=== PATIENT | female | born 1985 | race Caucasian/White ===

== ENCOUNTER → 2018-01-06 18:50 | Observation (INO) ==
--- NOTE | 2018-01-06 16:59 | OB/GYN Progress Note ---
Date of Encounter: 01/06/18 Time of Encounter: 16:52 - Assessment and Plan (1) Dichorionic diamniotic twin gestation Current Visit: Yes Status: Acute Qualifiers: Trimester: third trimester Qualified Code(s): O30.043 - Twin , dichorionic/diamniotic, third trimester (2) 29 weeks gestation of Current Visit: Yes Status: Acute FHT reassuring x2 per Dr. Levi who has reviewed tracing. (3) Nausea Current Visit: Yes Status: Acute Sx improved with zofran. She is tolerating regular diet. Discharge home with precautions. POC per Dr. Levi Subjective - Subjective Interval history: 32 year-old female G1 presenting at 29w1d with di/di twin complaining of nausea, diarrhea, and cramping for last 2 days. She reports feeling generally ill. No leaking or bleeding. Good FM. No urinary sx. She states she is out of her zofran at home. She states only one BM this am. No vomiting. She is tolerating a regular diet and fluids. Antepartum ROS: movement normal, no loss of fluid, no vaginal bleeding, no contractions Objective - Vital Signs Vital Signs: Intake and Output 01/06/18 01/06/18 01/06/18 07:59 15:59 23:59 Other: Weight 189 kg Patient Weight 01/06/18 23:59 Weight 189 kg - Exam FHR: category 1 Auscultation: bilateral: normal Abdomen: Present: soft, gravid. Absent: tenderness Uterus: Absent: tenderness
[2018-01-06 17:51] LABS: Bilirubin,Urine Negative (Negative); Blood,Urine Negative (Negative); Clarity,Urine Cloudy (Clear); Color,Urine Yellow (Yellow); Glucose,Urine (UA) Normal (Normal); Ketones,Urine Negative (Negative); Leukocyte Esterase,Urine Small (Negative); Nitrite,Urine Negative (Negative); Protein,Urine Negative (Neg-Trace); Specific Gravity,Urine > 1.030 (1.010-1.025); Urobilinogen,Urine Normal (Normal)
[2018-01-06 17:56] LABS: Bacteria,Urine None Seen per hpf (None-Few); Hyaline Casts,Urine None Seen per lpf (None-Few); RBC,Urine 0-3 per hpf (0-3); Squamous Epithelial Cell,Urine Many per lpf (None-Few)
[2018-01-06 18:10] LABS: Uric Acid Crystals,Urine Present
[~2018-01-06 18:50] MED LIST: Ondansetron ODT 4 MG TAB.RAPDIS SL ONE
== END | disposition home or self-care (01) ==
LOC: 1NENULAB
PROVIDERS: ADMIT Obstetrics & Gynecology; ATTEND Obstetrics & Gynecology

== ENCOUNTER → 2018-01-11 18:37 | Observation (INO) ==
--- NOTE | 2018-01-11 14:34 | OB/GYN Progress Note ---
Date of Encounter: 01/11/18 Time of Encounter: 14:30 - Assessment and Plan (1) Acute cystitis during in third trimester Current Visit: Yes Status: Acute UA with moderate leukocytes and some WBC's. Keflex rx given. Discharge home with precautions. Will follow-up culture. (2) False labor Current Visit: Yes Status: Acute SVE closed/thick/high x2 exams. PT reports pain has resolved. SSE negative pool, negative fern. (3) 29 weeks gestation of Current Visit: No Status: Acute (4) Dichorionic diamniotic twin gestation Current Visit: No Status: Acute FHT reassuring for GA x2. Tracing reviewed by Dr. Cheung. POC discussed with Dr. Cheung. Qualifiers: Trimester: third trimester Qualified Code(s): O30.043 - Twin , dichorionic/diamniotic, third trimester Subjective - Subjective Principal diagnosis: leaking fluid Interval history: 32 year-old female currently 29w6d with di/di twins presenting with c/o a small gush of clear fluid at approx 1320 this afternoon. She was in the restroom when she felt some extra fluid come out after she urinated. She denies contractions or bleeding. Good FM. She does report some lower back pain for the last 2 days as well as increased vaginal discharge. No other complaints. Antepartum ROS: movement normal, contractions (lower back pain, unsure if contractions), no loss of fluid, no vaginal bleeding Objective - Vital Signs Vital Signs: Intake and Output 01/10/18 01/11/18 01/11/18 23:59 07:59 15:59 Other: Weight 194.7 kg Patient Weight 01/11/18 23:59 Weight 194.7 kg - Exam FHR: category 1 FHR comments: FHT reassuring for GA x2 Auscultation: bilateral: normal Abdomen: Present: soft, gravid. Absent: tenderness Uterus: Absent: tenderness Cervical dilation: 0 Cervix effacement: thick station: high Comments: SSE negative for pooling, negative fern. Vaginosis panel negative.
[2018-01-11 14:45] LABS: Bilirubin,Urine Negative (Negative); Blood,Urine Negative (Negative); Clarity,Urine Cloudy (Clear); Color,Urine Yellow (Yellow); Glucose,Urine (UA) Normal (Normal); Ketones,Urine Trace mg/dL (Negative); Leukocyte Esterase,Urine Large (Negative); Nitrite,Urine Negative (Negative); Protein,Urine Trace mg/dL (Neg-Trace); Specific Gravity,Urine 1.019 (1.010-1.025); Urobilinogen,Urine Normal (Normal)
[2018-01-11 14:50] LABS: Bacteria,Urine Many per hpf (None-Few); Hyaline Casts,Urine Moderate per lpf (None-Few); RBC,Urine 0-3 per hpf (0-3); Squamous Epithelial Cell,Urine Many per lpf (None-Few); WBC,Urine TNTC per hpf (0-3)
[2018-01-11 15:15] LABS: Amphetamine Screen,Urine Negative ng/mL (Cutoff=1000); Barbiturate Screen,Urine Negative ng/mL (Cutoff=200); Benzodiazepines Screen,Urine Negative ng/mL (Cutoff=200); Cannabinoid Screen,Urine Negative ng/mL (Cutoff = 50); Cocaine Screen,Urine Negative ng/mL (Cutoff= 300); Opiate Screen,Urine Negative ng/mL (Cutoff=300); Phencyclidine Screen,Urine Negative ng/mL (Cutoff=25)
[2018-01-11 15:28] LABS: Candida DNA Not Detected (Not Detect); Gardnerella DNA Not Detected (Not Detect); Trichomonas DNA Not Detected (Not Detect)
== END | disposition home or self-care (01) ==
LOC: 1NENULAB
PROVIDERS: ADMIT Student in an Organized Health Care Education/Training Program; ATTEND Student in an Organized Health Care Education/Training Program

== ENCOUNTER 2018-03-08 19:05 | Inpatient (IN) ==
[~2018-03-08 19:05] MED LIST changes: +Methylergonovine 0.2 MG/ML AMPUL IM ONE; -Ondansetron ODT 4 MG TAB.RAPDIS SL ONE; +Ringers Solution, Lactated 1,000 ML IVC ONE; +miSOPROStol 100 MCG TABLET PO ONE
[2018-03-08] MEDS ORDERED: CeFAZolin Premix DUPLEX 2,000 MG/50 ML BAG IVPB ONE (19:14)
[2018-03-08] MEDS ORDERED: Metoclopramide 10 MG/2 ML VIAL IVP ONE (19:14)
[2018-03-08] MEDS ORDERED: Oxytocin 20 units/ LR 1000 mL 20 UNIT/1,000 ML BAG IVC ONE (19:14)
[2018-03-08] MEDS ORDERED: Famotidine 20 MG/2 ML VIAL IVP ONE (19:14)
[2018-03-08] MEDS ORDERED: Ringers Solution, Lactated 1,000 ML ONE ×4 (19:15→21:01)
[2018-03-08] MEDS ORDERED: Bupivacaine/PF 0.75% in Dex 2 ML AMPUL INFILT ONE (19:24)
[2018-03-08] MEDS ORDERED: *HR* Morphine Sulfate/PF 10 MG/10 ML AMPUL ONE (19:27)
[2018-03-08] MEDS ORDERED: *HR* Oxytocin 10 UNIT/ML VIAL IM ONE ×3 (19:27→21:01)
[2018-03-08] MEDS ORDERED: EPHEDrine 50 MG/ML VIAL ONE (19:27)
[2018-03-08] MEDS ORDERED: Lidocaine -MPF 2% 5 ML VIAL ONE ×2 (19:27→20:55)
[2018-03-08] MEDS ORDERED: *HR* FentaNYL (PF) 100 MCG/2 ML VIAL ONE (19:27)
[2018-03-08] MEDS ORDERED: Water for inj. (sterile) 10 ML IV ONE (19:27)
--- NOTE | 2018-03-08 19:30 | OB/GYN History & Physical ---
Date of Encounter: 03/08/18 Time of Encounter: 19:27 Assessment and Plan (1) and not yet delivered in third trimester Current visit: Yes Status: Acute (2) 37 weeks gestation of Current visit: Yes Status: Acute (3) Breech presentation Current visit: Yes Status: Acute Qualifiers: Fetus number: fetus 1 of multiple gestation Qualified Code(s): O32.1XX1 - Maternal care for breech presentation, fetus 1 (4) Spontaneous rupture of membranes Current visit: Yes Status: Acute (5) Active labor at term Current visit: Yes Status: Acute Patient will be prepped for a primary low transverse section (6) Dichorionic diamniotic twin gestation Current visit: No Status: Acute Qualifiers: Trimester: third trimester Qualified Code(s): O30.043 - Twin , dichorionic/diamniotic, third trimester History of Present Illness HPI: Ms. Bishop is a 32 year old female 2 para 1 at 37-6/7 weeks who presented to labor and delivery complaining of ruptured membranes approximately 1330. Patient has a known twin gestation breech breech and is supposed to deliver at [facility]. Baby A has a lesion on his lung and we suspect possible CPAM and she was supposed to deliver in [place] in case they needed immediately transferred to [facility] for surgical intervention. On admission patient was 5 cm grossly ruptured and nicole every 2-3 minutes. Patient was too unstable for transfer section will need to be called at this point the patient has had good care with maternal- medicine and throughout the office with Dr. Carter and has been seen by the neonatology department at [facility]. Patient states that she had been feeling both babies move prior to coming in. Past patient whether she wanted tubal ligation at this point she did not really know whether she wanted it so this will not be performed at this time. Patient's GBS status was negative patient is rubella positive, Rh+, Varicella positive Past Med Surg Social Fam HX - Past Medical History Source: patient, old records reviewed Medical history: GERD, migraine Psychiatric history: anxiety, depression, other (Attention deficit disorder) - Past Surgical History Additional surgical history: sinus surgery, lumpectomy right breast, with an did, facial plastic surgery repair - Social History Smoking Status: Never smoker Smokeless Tobacco Status: No Alcohol use: none Drug use: none Occupational status: employed Current living situation: Home - Independent Activity Level: Independent ambulation Recent Out of Country Travel Within the Last 8 Weeks: No Exposure or Possible Exposure to Illness During Travel: No - Family History Mother Living Status: Still Living Hx Family Cardiac Disorders: No Hx Family Respiratory Disorders: No Hx Family Cancer: No Hx Family GI Disorders: No Hx Family Endocrine Disorder: No Hx Family Neuromuscular Disorders: No Hx Family Neurologic Disorders: No Hx Family HEENT Disorders: No Hx Family Autoimmune Disorders: No - Additional Family History Additional family history: Family history noncontributory Obstetrical History - Pregnancies : 2 Para: 1 Medications and Allergies Aspirin 81 mg PO DAILY 01/06/18 [History] Excedrin Migraine Caplet 1 tab PO 1-2XD PRN 01/06/18 [History] Vitamins 1 tab PO DAILY 01/06/18 [History] Prozac 40 mg PO DAILY 01/06/18 [History] Cephalexin [Keflex] 500 mg PO BID #14 capsule 01/11/18 [Rx] Ondansetron ODT [Zofran ODT] 4 mg SL Q8HR PRN 01/11/18 [History] Allergy/AdvReac Type Severity Reaction Status Date / Time sulfamethoxazole AdvReac Hives Verified 01/11/18 14:05 [From Bactrim] trimethoprim [From Bactrim] AdvReac Hives Verified 01/11/18 14:05 Review of System OB All systems PM: reviewed and no additional remarkable complaints except as stated Exam - Constitutional Constitutional: well developed, well nourished, average body habitus, moderate distress - HEENT HEENT: EOMI, Mucus Membranes Moist - Neck Neck exam: full ROM - Lungs Respiratory exam: CTAB - Cardiovascular Cardiovascular exam: RRR - Abdomen Abdomen: Present: bowel sounds normal, gravid ( heart tones 140s reactive both a and B nicole every 2-3 minutes) Results All other labs normal.
[2018-03-08 19:31] LABS: Basophils % 0.2 %; Eosinophils # 0.1 K/mcL (0.0-0.6); Eosinophils % 0.6 %; Hematocrit 39.1 % (35.3-44.9); Hemoglobin 12.7 g/dL (11.5-15.4); Immature Granulocytes % 1.1 % (0-4); Lymphocytes # 1.5 K/mcL (0.6-4.6); Lymphocytes % 13.8 %; Mean Corpuscular HGB Conc 32.5 g/dL (31.6-35.5); Mean Corpuscular Hemoglobin 26.8 pg (28.0-33.3); Mean Corpuscular Volume 82.7 fL (83.0-100.0); Mean Platelet Volume 9.1 fL (9.4-12.4); Monocytes # 0.8 K/mcL (0.0-1.3); Monocytes % 7.6 %; Neutrophils # 8.5 K/mcL (1.6-8.9); Platelet Count 202 K/mcL (140-400); Red Blood Count 4.73 M/mcL (3.82-4.97); Red Cell Distribution Width 16.7 % (11.5-14.5); Segmented Neutrophils % 76.7 %
[2018-03-08] MEDS ORDERED: Azithromycin 500 MG in D5% in Water 250 ML IVPB ONE ×2 (19:55→22:00)
[2018-03-08] MEDS ORDERED: Ondansetron 4 MG/2 ML VIAL ONE (20:24)
--- NOTE | 2018-03-08 20:31 | Anesthesia Evaluation PreOp ---
Date of Encounter: 03/08/18 Time of Encounter: 19:13 - Past History Planned Operation: primary c section for breech twins Cardiac History: Denies any Significant Hx Pulmonary History: Denies Any Significant HX LOGISTICS ANALYST History: Other (anxiety/depression, migraine headaches.) Other Medical History: Denies Any Significant HX Anesthesia History: No Prior Anesthetic Complications, Past Anesthesia (sinus surgery. No problems with GA. No FHAP. Previous epidural 6 years ago, no pr oblems.) Alcohol Use: none Drug use: none Medications and Allergies Aspirin 81 mg PO DAILY 01/06/18 [History] Excedrin Migraine Caplet 1 tab PO 1-2XD PRN 01/06/18 [History] Vitamins 1 tab PO DAILY 01/06/18 [History] Prozac 40 mg PO DAILY 01/06/18 [History] Cephalexin [Keflex] 500 mg PO BID #14 capsule 01/11/18 [Rx] Ondansetron ODT [Zofran ODT] 4 mg SL Q8HR PRN 01/11/18 [History] Allergy/AdvReac Type Severity Reaction Status Date / Time sulfamethoxazole AdvReac Hives Verified 01/11/18 14:05 [From Bactrim] trimethoprim [From Bactrim] AdvReac Hives Verified 01/11/18 14:05 - Meds/Allergy Pre-op Review Medications Reviewed: Yes Allergies Reviewed: Yes Beta Blockers on Current Med List: No Anesthesia Results - Labs 03/08/18 19:08 Anesthesia Exam VSS and FHTs stable Height: 5'4" Weight: 208# NPO (# of Hours): 6 Pain Scale: 4 Pain Scale Used: Numeric (1 - 10) - HEENT Pupil (Motor): Pupils equal Mallampati: II Teeth: Normal Oral Opening: Greater than 3 - LOGISTICS ANALYST LOC: Oriented LOGISTICS ANALYST Motor: Normal RUE, Normal LUE, Normal RLE, Normal LLE, Normal Face LOGISTICS ANALYST Sensory: Normal: RUE, LUE, RLE, LLE, Face - Cardiac Rhythm: Regular - Pulmonary Breath Sounds: bilateral Clear Respiratory Effort: Symmetrical Anesthesia Assess/Plan ASA Score: 2 Level of consciousness: Cooperative, Oriented, Tranquil Anesthetic Plan: Spinal Monitoring Plan: Standard Monitors Recovery Plan: PACU
--- NOTE | 2018-03-08 21:07 | OB/GYN Procedure Note ---
Section - Date of procedure: 03/08/18 Preop diagnosis: other (Intrauterine at 37 and 6/7 weeks, twin gestation breech, breech, active labor, spontaneous rupture membranes) Post-op diagnosis: same Procedure: primary low transverse Surgeon: Rafi Crawford Quantitated Blood Loss: 2,000 Was there an market research assistant present: No Anesthesiologist: Nora Elliott Deputy Sheriff Civil Division: Aliya Villegas Anesthesia Type: Spinal section complications: uterine atony Disposition: L&D Recovery Room Specimens: Placenta - Infant (s) A Infant Delivery Date: 03/08/18 Infant Delivery Time: 20:13 Presentation: footling breech Route of delivery: other (section) Gender: Female Viability: Viable Pounds: 5 Ounces: 1 Gram Weight: 2.285 kg at 1 minute: 7 at 5 minutes: 7 Shoulder Dystocia: not encountered Placenta: spontaneous Cord: 3 umbilical vessels B Delivery Date: 03/08/18 Delivery Time: 20:13 Presentation: kain breech Route of delivery: other (section) Gender: Female Viability: Viable Pounds: 6 Ounces: 10 Gram Weight: 3.01 kg at 1 minute: 8 at 5 minutes: 9 Shoulder Dystocia: not encountered Placenta: spontaneous Cord: 3 umbilical vessels - Narrative Narrative: Patient is a 32-year-old 2 para 1 at 37 and 6 seconds weeks of present to labor and delivery complaining of leaking of fluid since 1630 and contractions every 2-3 minutes. On admission patient was 5 cm patient is a known twin gestation and both babies were breech breech patient is scheduled for a primary section tomorrow at [facility]. Patient states that she did not feel like she can make it there so she came to hospital she was too unstable to transfer and section was called patient was being delivered at [facility] due to twin A having possible CPAM. Procedure: Patient was taken to the operating room where spinal anesthesia was found be adequate. She was placed in the dorsal supine position with leftward tilt prepped and draped in usual fashion. Timeout was obtained. A Pfannenstiel incision was made with a scalpel and carried down to the underlying tissue until the fascia was identified. Fascia was nicked in midline extended laterally with the Morris scissors. The superior and inferior edges of the fascia grasped and tented up dissected off the rectus muscles. Rectus muscles were in the midline parietal peritoneum was identified tented up and entered sharply. This is extended superiorly and inferiorly with Metzenbaum scissors. Bladder blade was inserted the vesicouterine peritoneum was then identified tented up and entered sharply. This was extended laterally and the bladder flap was created digitally. The lower uterine segment was incised with the scalpel and extended laterally with digital manipulation. And rinsed a bulge to the incision there is a ruptured large amounts of fluid was noted. a was noted to be in footling breech the feet were grasped with a through the incision once we had the infant's hips delivered contraceptive across the chest Was then delivered there was a nuchal cord 1 the cord was clamped and cut was handed off to waiting pediatric team. Twin B immediately was delivering no membranes were ruptured at this time this baby was in a kain breech presentation the had Cervidil and grasp with out through the incision contraceptive across the chest and the infant was delivered cord was clamped and cut Ambrose was then handed off. Cord gases and blood was necessary at this time the placenta was then delivered spontaneously 3 vessel cords and both disks. The uterus was exteriorized cleared of all clots and debris we did have uterine atony with significant amount of blood loss at this time 0.2 mg of Methergine was given IM and Pitocin was running with manipulation of the uterus it finally contracted down we then proceeded to close the incision using an 0 Vicryl in a running locking stitch by 2 layer closure. Uterus was nice and firm and we had good hemostasis uterus was returned to the abdomen the gutters were cleaned of all clots and debris then copiously irrigated with no active bleeding we did apply Luke to the bladder reflection and the fascia was closed using a #1 Statafix in a running stitch and the skin was closed using a 4-0 Vicryl in a subcuticular manner. All needles laps and sponge counts were correct 3 she did receive preoperative antibiotics. Patient was taken to the recovery room in stable condition she will to 2 hours before being taken to the floor. We will get a stat CBC and recovery to see what her hemoglobin is. She will be given IV Zithromax and will be continued on by mouth Zithromax daily for 5 days.
[2018-03-08] MEDS ORDERED: miSOPROStol 100 MCG TABLET RC STA (21:42)
[2018-03-08] MEDS ORDERED: Acetaminophen IV 1,000 MG/100 ML INFUS..BTL IVPB ONE (21:44)
[2018-03-08] MEDS ORDERED: *HR* Promethazine 25 MG/ML VIAL IVP PRN (21:44)
--- NOTE | 2018-03-08 21:46 | Event Note ---
Date of Encounter: 03/08/18 Time of Encounter: 21:44 Called to see patient in recovery room due to continuous vaginal bleeding. Patient had approximately 200 mL of clot sitting on her pad I did a bimanual exam and the patient endometrium was 4 clot these were expressed at this time approximately 300 more cc of clot was removed at this time. Endometrial cavity did contract down 600 g of Cytotec was placed rectally at this time. We did observe bleeding was significantly less with a small trickle noted. We did explore the uterus again and cavity was contracted down. Patient will continue to be observed still waiting on the CBC to come back to discuss she is probably going to need a transfusion.
--- NOTE | 2018-03-08 22:13 | Anesthesia Progress Note ---
Date of Encounter: 03/08/18 Time of Encounter: 10:03 Anesthesia Note - Note Note: 03/08/18 22:11 started second IV, 18 guage in right hand. Flushed with NS, j looped and locked.
--- NOTE | 2018-03-08 22:16 | Anesthesia Evaluation Post Op ---
Date of Encounter: 03/08/18 Time of Encounter: 10:00 - Vital Signs Vital Signs: VSS throughout pacu stay. systolic bp 105 to 110 over 50s and 60s. - Lungs Lungs: Clear Ascult./Percussion - Airway Airway: Non-obstructed - Cardiovascular Regular Rate - Mental Status Mental Status: Alert & Oriented, Answers Appropriately - Pain Pain Scale: 0 Pain Scale used: Numeric (1 - 10) - Nausea Vomiting Nausea Vomiting: Present (intermittant nausea, no vomiting. No additional medications administered. Patient feels better lying flatter.) - Hydration Hydration: NPO Notes: 03/08/18 22:15 @nd IV started, 18G j looped and locked. Postop H/H still pending - Discharge PostOp Status: Transfer Patient to floor
[2018-03-08 22:22] LABS: Basophils % 0.2 %; Eosinophils % 0.2 %; Hematocrit 30.1 % (35.3-44.9); Immature Granulocytes % 0.8 % (0-4); Lymphocytes # 1.8 K/mcL (0.6-4.6); Lymphocytes % 8.3 %; Mean Corpuscular HGB Conc 32.2 g/dL (31.6-35.5); Mean Corpuscular Hemoglobin 27.2 pg (28.0-33.3); Mean Corpuscular Volume 84.6 fL (83.0-100.0); Mean Platelet Volume 9.1 fL (9.4-12.4); Monocytes % 4.8 %; Neutrophils # 18.2 K/mcL (1.6-8.9); Platelet Count 218 K/mcL (140-400); Red Blood Count 3.56 M/mcL (3.82-4.97); Red Cell Distribution Width 16.6 % (11.5-14.5); Segmented Neutrophils % 85.7 %
[2018-03-08 22:25] LABS: Hemoglobin 9.7 g/dL (11.5-15.4)
[2018-03-09] MEDS ORDERED: 0.9 % Sodium Chloride 1,000 ML IVC SCH (01:21)
[2018-03-09] MEDS ORDERED: Metoclopramide 10 MG/2 ML VIAL IVP PRN (01:21)
[2018-03-09] MEDS ORDERED: Ondansetron 4 MG/2 ML VIAL IVP PRN (01:21)
[2018-03-09] MEDS ORDERED: Simethicone 80 MG TAB.CHEW PO PRN (01:21)
[2018-03-09] MEDS ORDERED: Oxytocin 20 units/ LR 1000 mL 20 UNIT/1,000 ML BAG IVC SCH ×2 (01:21)
[2018-03-09] MEDS ORDERED: Sennosides 8.6 MG TABLET PO PRN (01:21)
[2018-03-09 05:03] LABS: Basophils % 0.1 %; Hematocrit 24.5 % (35.3-44.9); Hemoglobin 8.3 g/dL (11.5-15.4); Immature Granulocytes % 1.2 % (0-4); Lymphocytes # 1.4 K/mcL (0.6-4.6); Lymphocytes % 8.7 %; Mean Corpuscular HGB Conc 33.9 g/dL (31.6-35.5); Mean Corpuscular Volume 82.8 fL (83.0-100.0); Monocytes % 6.1 %; Neutrophils # 13.5 K/mcL (1.6-8.9); Platelet Count 180 K/mcL (140-400); Red Blood Count 2.96 M/mcL (3.82-4.97); Red Cell Distribution Width 16.6 % (11.5-14.5); Segmented Neutrophils % 83.9 %
[2018-03-09] MEDS: *HR* OxyCODONE/APAP 5/325 TABLET PO PRN ×3 (08:44→18:40)
[2018-03-09] MEDS: Prenatal Vit/FA 1 EACH TABLET PO SCH (08:44)
[2018-03-09] MEDS: Azithromycin 250 MG TABLET PO SCH (08:45)
[2018-03-09] MEDS ORDERED: NON-FORMULARY MEDICATION 1 EACH EACH (Prenatal Vitamins 1 TAB) PO SCH (09:00)
[2018-03-09] MEDS ORDERED: Ondansetron ODT 4 MG TAB.RAPDIS SL PRN (09:14)
[2018-03-09] MEDS: Ibuprofen 600 MG TABLET PO PRN ×2 (09:39→18:41)
[2018-03-09] MEDS ORDERED: Ringers Solution, Lactated 500 ML IVC ONE (09:51)
--- NOTE | 2018-03-09 09:59 | OB/GYN Progress Note ---
Date of Encounter: 03/09/18 Time of Encounter: 09:57 - Assessment and Plan (1) delivery delivered Current Visit: Yes Status: Acute Continue routine post-op/ care Anticipate discharge tomorrow or (2) Anemia complicating the puerperium Current Visit: Yes Status: Acute VSS Repeat CBC in AM C/O nausea and dizziness; will monitor Subjective - Subjective Principal diagnosis: Primary C/S for Breech twin presentation Interval history: S/P primary section day 1 Pain well controlled Lochia light and without clots VSS C/O nausea and dizziness; will continue to monitor Tolerating regular diet; passing flatus Lim removed this AM; will monitor voids Breast feeding Anticipate discharge home tomorrow or POC per consult with Dr Croft Patient reports: appetite normal, dizzy ambulation (Will continue to monitor - EBL 3000mL; Hgb 8.3 this am), pain well controlled, ambulating normally, nauseated, no voiding normally (lim catheter just removed) : doing well (Baby B in room), in NICU (Baby A in SCN) Objective - Vital Signs Latest vital signs: Vital Signs Temp Pulse Resp BP Pulse Ox 03/09/18 07:20 98.6 F 97 18 103/67 97 03/09/18 06:03 99.2 F 99 19 97/63 97 03/09/18 05:54 98.5 F 112 19 97/59 97 03/09/18 03:20 98.7 F 118 19 92/65 97 03/09/18 02:22 98.3 F 100 16 105/71 100 03/09/18 01:20 98.6 F 118 14 90/59 99 03/09/18 00:30 98.7 F 125 14 99/77 98 03/09/18 00:00 99.6 F 117 15 103/69 98 Intake and Output 03/08/18 03/09/18 03/09/18 23:59 07:59 15:59 Intake Total 360 / 360 Output Total 300 / 300 150 / 150 Balance 60 / 60 -150 / -150 Intake: Oral 360 / 360 Output: Catheter 300 / 300 150 / 150 Other: Weight 94.347 kg 87.8 kg Patient Weight 03/09/18 23:59 Weight 87.8 kg - Exam Lungs: bilateral: normal Chest: Normal S1, Normal S2 Extremities: Present: normal Abdomen: Present: normal appearance, soft. Absent: gravid, tenderness Incision: Present: normal (Dressing C/D/I) Uterus: Present: normal, firm Fundal Height: 0 (@ U) - Labs Labs: Laboratory Results - last 24 hr 03/08/18 03/08/18 03/09/18 19:08 20:58 04:32 WBC 11.1 21.2 H D 16.1 H RBC 4.73 3.56 L 2.96 L Hgb 12.7 9.7 L D 8.3 L Hct 39.1 30.1 L 24.5 L MCV 82.7 L 84.6 82.8 L MCH 26.8 L 27.2 L 28.0 MCHC 32.5 32.2 33.9 RDW 16.7 H 16.6 H 16.6 H Plt Count 202 218 180 MPV 9.1 L 9.1 L 9.0 L Immature Gran % 1.1 0.8 1.2 Seg Neutrophils % 76.7 85.7 83.9 Lymphocytes % 13.8 8.3 8.7 Monocytes % 7.6 4.8 6.1 Eosinophils % 0.6 0.2 0.0 Basophils % 0.2 0.2 0.1 Neutrophils # 8.5 18.2 H 13.5 H Lymphocytes # 1.5 1.8 1.4 Monocytes # 0.8 1.0 1.0 Eosinophils # 0.1 0.0 0.0 Basophils # 0.0 0.0 0.0
[2018-03-09] MEDS ORDERED: Magnesium Oxide 400 MG TABLET PO PRN (10:10)
[2018-03-10 07:17] LABS: Basophils % 0.1 %; Eosinophils # 0.1 K/mcL (0.0-0.6); Eosinophils % 0.6 %; Hematocrit 19.9 % (35.3-44.9); Immature Granulocytes % 1.7 % (0-4); Lymphocytes # 1.5 K/mcL (0.6-4.6); Mean Corpuscular HGB Conc 31.2 g/dL (31.6-35.5); Mean Corpuscular Hemoglobin 27.1 pg (28.0-33.3); Mean Corpuscular Volume 86.9 fL (83.0-100.0); Mean Platelet Volume 8.8 fL (9.4-12.4); Monocytes # 0.8 K/mcL (0.0-1.3); Monocytes % 7.6 %; Neutrophils # 7.9 K/mcL (1.6-8.9); Nucleated Red Blood Cells 0.2 /100 WBC (0); Platelet Count 160 K/mcL (140-400); Red Blood Count 2.29 M/mcL (3.82-4.97); Red Cell Distribution Width 17.5 % (11.5-14.5)
[2018-03-10 07:18] LABS: Hemoglobin 6.2 g/dL (11.5-15.4)
[2018-03-10] MEDS ORDERED: 0.9 % Sodium Chloride 250 ML IVC SCH (08:00)
[2018-03-10] MEDS: Ibuprofen 600 MG TABLET PO PRN ×3 (08:31→20:52)
[2018-03-10] MEDS: Prenatal Vit/FA 1 EACH TABLET PO SCH (08:31)
[2018-03-10] MEDS: Azithromycin 250 MG TABLET PO SCH (08:32)
[2018-03-10] MEDS: *HR* OxyCODONE/APAP 5/325 TABLET PO PRN ×3 (09:01→21:38)
--- NOTE | 2018-03-10 09:57 | OB/GYN Progress Note ---
Date of Encounter: 03/10/18 Time of Encounter: 09:55 - Assessment and Plan (1) Status post primary low transverse section Current Visit: Yes Status: Acute Patient not yet meeting milestones Continue care Possible discharge home tomorrow (2) anemia Current Visit: Yes Status: Acute Transfused 2 units PRBCs Check CBC 6 hours post transfusion Subjective - Subjective Principal diagnosis: s/p PLTCS Interval history: Feeling well. Out of bed with dizziness and nausea related to low hemoglobin. Some abdominal discomfort-using binder. Cramping minimal, using ibuprofen and Percocet. every 2-3 hours. Some nipple soreness. Voiding without difficulty. Passing flatus, no BM yet. Tolerating clear liquid diet. She was counseled on the need for blood transfusion related to hemoglobin of 6.2. She consented to blood transfusion. Patient reports: appetite normal, voiding normally, dizzy ambulation, pain well controlled : doing well (Twin A is in the NICU on antibiotics and twin B is in the room skin to skin), in NICU, nursing well Objective - Vital Signs Latest vital signs: Vital Signs Temp Pulse Resp BP Pulse Ox 03/10/18 04:25 98.5 F 104 14 97/62 95 03/09/18 23:25 98.5 F 112 15 104/68 97 03/09/18 19:43 98.9 F 116 15 100/66 96 03/09/18 15:37 98.3 F 110 18 95/61 97 03/09/18 11:46 98.1 F 102 20 100/65 96 Intake and Output 03/09/18 03/10/18 03/10/18 23:59 07:59 15:59 Output Total 1300 / 1300 Balance -1300 / -1300 Output: Urine 1300 / 1300 Other: Stool Characteristics Normal for Patient Weight 87.5 kg Patient Weight 03/10/18 23:59 Weight 87.5 kg - Exam Lungs: bilateral: normal Chest: Normal S1, Normal S2 Extremities: Present: normal, tenderness Abdomen: Present: normal appearance, soft Incision: Present: normal, dry, intact Uterus: Present: normal, firm Fundal Height: 0 (firm and midline) - Labs Labs: Laboratory Results - last 24 hr 03/08/18 03/10/18 19:20 06:32 WBC 10.4 RBC 2.29 L Hgb 6.2 L D Hct 19.9 L MCV 86.9 MCH 27.1 L MCHC 31.2 L RDW 17.5 H Plt Count 160 MPV 8.8 L Immature Gran % 1.7 Seg Neutrophils % 76.0 Lymphocytes % 14.0 Monocytes % 7.6 Eosinophils % 0.6 Basophils % 0.1 Neutrophils # 7.9 Lymphocytes # 1.5 Monocytes # 0.8 Eosinophils # 0.1 Basophils # 0.0 Nucleated RBCs/100 WBC 0.2 H Blood Type A POSITIVE Antibody Screen NEGATIVE Crossmatch See Detail
[2018-03-10 23:02] LABS: Hematocrit 25.3 % (35.3-44.9); Hemoglobin 8.5 g/dL (11.5-15.4)
[2018-03-11] MEDS: Acetaminophen/Butalbital/CaffeineTABLET PO PRN ×2 (01:31→10:13)
[2018-03-11] MEDS: Azithromycin 250 MG TABLET PO SCH (08:00)
[2018-03-11] MEDS: Prenatal Vit/FA 1 EACH TABLET PO SCH (08:00)
[2018-03-11] MEDS: Ibuprofen 600 MG TABLET PO PRN ×2 (08:00→15:19)
--- NOTE | 2018-03-11 09:31 | Discharge Summary ---
Date of Encounter: 03/11/18 Time of Encounter: 09:55 - Discharge Diagnosis (1) Status post Priority: Primary Status: Acute Comments: Pt meeting Post-op Day 3 milestones. Reports pain managed by Percocet. Pt up in room while I was present and she denies dizziness. Reports feeling better than the previous 2 days. Discussed BC options and safe spacing. She denies BC at this time, plans to get a vasectomy. Plan for discharge today and Pt plans to guest while Baby A remains in SCN. (2) () Priority: Secondary Status: Acute Comments: Baby B latching well in room. Pt continues to pump for Baby A in the SCN and hopes to work with and nurse Baby A today. Pt has a Rx for pump already. Encouraged her to continue to work with . (3) anemia Priority: Secondary Status: Acute Comments: Pt s/p 2 units PRBCs. She denies s/sx anemia this am. Hgb s/p transfusion 8.5. Discharge home on iron. - Discharge Medications Prescriptions: Ibuprofen [Motrin] 600 mg PO Q6HR PRN #60 tablet PRN Reason: Cramping OxyCODONE/APAP 5/325 [Percocet 5/325 MG] 1 each PO Q6HR PRN 7 Days #28 tablet PRN Reason: Moderate pain 4-6 Azithromycin [Zithromax] 500 mg PO DAILY #10 tablet Breast Pump [BREAST PUMP] 1 each .ROUTE AD #1 each Docusate [Colace] 100 mg PO BID #60 capsule Ferrous Sulfate 325 mg PO BIDWM #60 tablet Home Medications: Vitamins 1 tab PO DAILY 01/06/18 [History] Prozac 40 mg PO DAILY 01/06/18 [History] Cephalexin [Keflex] 500 mg PO BID #14 capsule 01/11/18 [Rx] Ondansetron ODT [Zofran ODT] 4 mg SL Q8HR PRN 01/11/18 [History] Breast Pump [BREAST PUMP] 1 each .ROUTE AD #1 each 03/09/18 [Rx] Azithromycin [Zithromax] 500 mg PO DAILY #10 tablet 03/11/18 [Rx] Docusate [Colace] 100 mg PO BID #60 capsule 03/11/18 [Rx] Ferrous Sulfate 325 mg PO BIDWM #60 tablet 03/11/18 [Rx] Ibuprofen [Motrin] 600 mg PO Q6HR PRN #60 tablet 03/11/18 [Rx] OxyCODONE/APAP 5/325 [Percocet 5/325 MG] 1 each PO Q6HR PRN 7 Days #28 tablet 03/11/18 [Rx] Allergies/Adverse Reactions: Allergy/AdvReac Type Severity Reaction Status Date / Time sulfamethoxazole AdvReac Hives Verified 01/11/18 14:05 [From Bactrim] trimethoprim [From Bactrim] AdvReac Hives Verified 01/11/18 14:05 Data Procedures and tests throughout hospitalization: Laboratory Tests 03/08/18 03/08/18 03/08/18 19:08 19:20 20:58 WBC 11.1 21.2 H D RBC 4.73 3.56 L Hgb 12.7 9.7 L D Hct 39.1 30.1 L MCV 82.7 L 84.6 MCH 26.8 L 27.2 L MCHC 32.5 32.2 RDW 16.7 H 16.6 H Plt Count 202 218 MPV 9.1 L 9.1 L Immature Gran % 1.1 0.8 Seg Neutrophils % 76.7 85.7 Lymphocytes % 13.8 8.3 Monocytes % 7.6 4.8 Eosinophils % 0.6 0.2 Basophils % 0.2 0.2 Neutrophils # 8.5 18.2 H Lymphocytes # 1.5 1.8 Monocytes # 0.8 1.0 Eosinophils # 0.1 0.0 Basophils # 0.0 0.0 Nucleated RBCs/100 WBC Volume Blood Blood Type A POSITIVE Antibody Screen NEGATIVE Crossmatch See Detail 03/09/18 03/10/18 03/10/18 04:32 06:32 10:53 WBC 16.1 H 10.4 RBC 2.96 L 2.29 L Hgb 8.3 L 6.2 L D Hct 24.5 L 19.9 L MCV 82.8 L 86.9 MCH 28.0 27.1 L MCHC 33.9 31.2 L RDW 16.6 H 17.5 H Plt Count 180 160 MPV 9.0 L 8.8 L Immature Gran % 1.2 1.7 Seg Neutrophils % 83.9 76.0 Lymphocytes % 8.7 14.0 Monocytes % 6.1 7.6 Eosinophils % 0.0 0.6 Basophils % 0.1 0.1 Neutrophils # 13.5 H 7.9 Lymphocytes # 1.4 1.5 Monocytes # 1.0 0.8 Eosinophils # 0.0 0.1 Basophils # 0.0 0.0 Nucleated RBCs/100 WBC 0.2 H Volume Blood 5 H Blood Type Antibody Screen Crossmatch 03/10/18 22:49 WBC RBC Hgb 8.5 L D Hct 25.3 L MCV MCH MCHC RDW Plt Count MPV Immature Gran % Seg Neutrophils % Lymphocytes % Monocytes % Eosinophils % Basophils % Neutrophils # Lymphocytes # Monocytes # Eosinophils # Basophils # Nucleated RBCs/100 WBC Volume Blood Blood Type Antibody Screen Crossmatch Labs on day of discharge: Labs from last 24 hours 03/10/18 03/10/18 03/08/18 22:49 10:53 19:20 Hgb 8.5 L D Hct 25.3 L Volume Blood 5 H Blood Type A POSITIVE Antibody Screen NEGATIVE Crossmatch See Detail Date of admission: 03/08/18 19:05 Primary care physician: Ruperto Dominguez MD Discharging clinician: Shelbi Mata Anticipated date of discharge: 03/11/18 - Patient Status Disposition: Home, Self-Care Condition: Good Functional capacity at discharge: independent ambulation Overall status at discharge: patient is progressing back to baseline - Discharge Instructions Follow Up With: Ruperto Dominguez MD [Primary Care Provider] - - Diet and Activity Activity: increase activity as tolerated Diet: advance to your usual diet Hospital Course Reason for admission: active labor, section, rupture of membranes, IUP at term Delivery: section Episiotomy: none Laceration: none Other procedures: none complications: transfusion, uterine atony Discharge diagnosis: IUP at term delivered [place] baby: twins Hospital course: - Date of procedure: 03/08/18 Preop diagnosis: other (Intrauterine at 37 and 6/7 weeks, twin gestation breech, breech, active labor, spontaneous rupture membranes) Post-op diagnosis: same Procedure: primary low transverse Surgeon: Rafi Crawford Quantitated Blood Loss: 2,000 Was there an family law legal assistant present: No Anesthesiologist: Nora Elliott [employer] Applications Development Engineer: Aliya Villegas Anesthesia Type: Spinal section complications: uterine atony Disposition: L&D Recovery Room Specimens: Placenta - (s) Infant A Infant Delivery Date: 03/08/18 Delivery Time: 20:13 Presentation: footling breech Route of delivery: other (section) Gender: Female Viability: Viable Pounds: 5 Ounces: 1 Gram Weight: 2.285 kg at 1 minute: 7 at 5 minutes: 7 Shoulder Dystocia: not encountered Placenta: spontaneous Cord: 3 umbilical vessels Infant B Delivery Date: 03/08/18 Infant Delivery Time: 20:13 Presentation: kain breech Route of delivery: other (section) Gender: Female Viability: Viable Pounds: 6 Ounces: 10 Gram Weight: 3.01 kg at 1 minute: 8 at 5 minutes: 9 Shoulder Dystocia: not encountered Placenta: spontaneous Cord: 3 umbilical vessels - Narrative Narrative: Patient is a 32-year-old 2 para 1 at 37 and 6 seconds weeks of present to labor and delivery complaining of leaking of fluid since 1630 and contractions every 2-3 minutes. On admission patient was 5 cm patient is a known twin gestation and both babies were breech breech patient is scheduled for a primary section tomorrow at [facility]. Patient states that she did not feel like she can make it there so she came to hospital she was too unstable to transfer and section was called patient was being delivered at [facility] due to twin A having possible CPAM. Procedure: Patient was taken to the operating room where spinal anesthesia was found be adequate. She was placed in the dorsal supine position with leftward tilt prepped and draped in usual fashion. Timeout was obtained. A Pfannenstiel incision was made with a scalpel and carried down to the underlying tissue until the fascia was identified. Fascia was nicked in midline extended laterally with the Morris scissors. The superior and inferior edges of the fascia grasped and tented up dissected off the rectus muscles. Rectus muscles were in the midline parietal peritoneum was identified tented up and entered sharply. This is extended superiorly and inferiorly with Metzenbaum scissors. Bladder blade was inserted the vesicouterine peritoneum was then identified tented up and entered sharply. This was extended laterally and the bladder flap was created digitally. The lower uterine segment was incised with the scalpel and extended laterally with digital manipulation. And rinsed a bulge to the incision there is a ruptured large amounts of fluid was noted. a was noted to be in footling breech the feet were grasped with a through the incision once we had the infant's hips delivered contraceptive across the chest Was then delivered there was a nuchal cord 1 the cord was clamped and cut was handed off to waiting pediatric team. Twin B immediately was delivering no membranes were ruptured at this time this baby was in a kain breech presentation the had Cervidil and grasp with out through the incision contraceptive across the chest and the infant was delivered cord was clamped and cut Ambrose was then handed off. Cord gases and blood was necessary at this time the placenta was then delivered spontaneously 3 vessel cords and both disks. The uterus was exteriorized cleared of all clots and debris we did have uterine atony with significant amount of blood loss at this time 0.2 mg of Methergine was given IM and Pitocin was running with manipulation of the uterus it finally contracted down we then proceeded to close the incision using an 0 Vicryl in a running locking stitch by 2 layer closure. Uterus was nice and firm and we had good hemostasis uterus was returned to the abdomen the gutters were cleaned of all clots and debris then copiously irrigated with no active bleeding we did apply Luke to the bladder reflection and the fascia was closed using a #1 Statafix in a running stitch and the skin was closed using a 4-0 Vicryl in a subcuticular manner. All needles laps and sponge counts were correct 3 she did receive preoperative antibiotics. Patient was taken to the recovery room in stable condition she will to 2 hours before being taken to the floor. We will get a stat CBC and recovery to see what her hemoglobin is. She will be given IV Zithromax and will be continued on by mouth Zithromax daily for 5 days. Time Attestation: Total time spent providing and/or coordinating discharge services: - VTE Documentation of Mechanical Device: Intermittent pneumatic compression device Exam - Constitutional Vitals: Temp Pulse Resp BP Pulse Ox 99.1 F 94 16 109/74 98 03/11/18 07:48 03/11/18 07:48 03/11/18 07:48 03/11/18 07:48 03/11/18 07:48 General appearance IM: A&O X 3, pleasant, no acute distress - Respiratory Respiratory exam: Present: CTAB - Cardiovascular Cardiovascular exam IM: Present: RRR - GI/Abdominal GI/Abdominal exam IM: normal bowel sounds Incision: normal, dry, intact - Uterine Tone: Firm Uterus Position: 1 Finger Below Umbilicus - Extremities Exam Extremities exam IM: Present: normal capillary refill, pedal edema (1+). Absent: calf tenderness - Neurological Exam Neurological exam: alert, oriented X3, reflexes normal
[2018-03-11 11:32] VITALS: BP 115/75
[2018-03-11] MEDS: *HR* OxyCODONE/APAP 5/325 TABLET PO PRN (13:03)
== END 2018-03-11 17:45 | disposition home or self-care (01) | DRG 540 ==
LOC: 1NENULAB → 1NENUOBS 03-09 01:24
PROVIDERS: ADMIT Obstetrics & Gynecology; ATTEND Obstetrics & Gynecology

== ENCOUNTER → 2019-08-16 20:50 | Observation (INO) ==
[2019-08-16 18:00] VITALS: BP 121/72
[2019-08-16 19:32] LABS: Bilirubin,Urine Negative (Negative); Blood,Urine Negative (Negative); Clarity,Urine Clear (Clear); Color,Urine Yellow (Yellow); Glucose,Urine (UA) Normal (Normal); Ketones,Urine Negative (Negative); Leukocyte Esterase,Urine Negative (Negative); Nitrite,Urine Negative (Negative); PH,Urine 6.5 pH Units (5.0-8.0); Protein,Urine Negative (Neg-Trace); Specific Gravity,Urine 1.025 (1.010-1.025); Urobilinogen,Urine Normal (Normal)
[~2019-08-16 20:50] MED LIST changes: -Methylergonovine 0.2 MG/ML AMPUL IM ONE; +Ringers Solution, Lactated 1,000 ML IVC SCH; +Ringers Solution, Lactated 2,000 ML ONE; -miSOPROStol 100 MCG TABLET PO ONE
== END | disposition home or self-care (01) ==
LOC: 1NENULAB
PROVIDERS: ADMIT Obstetrics & Gynecology; ATTEND Obstetrics & Gynecology

== ENCOUNTER → 2019-10-26 20:23 | Observation (INO) | END | disposition home or self-care (01) | LOC: 1NENULAB | PROVIDERS: ADMIT Obstetrics & Gynecology; ATTEND Obstetrics & Gynecology ==

== ENCOUNTER 2019-11-09 22:45 | Inpatient (IN) ==
[2019-11-09 17:05] LABS: Basophils # 0.1 K/mcL (0.0-0.2); Basophils % 0.4 %; Eosinophils # 0.1 K/mcL (0.0-0.6); Eosinophils % 0.6 %; Hematocrit 40.5 % (35.3-44.9); Hemoglobin 13.2 g/dL (11.5-15.4); Immature Granulocytes % 2.1 % (0-4); Lymphocytes # 1.4 K/mcL (0.6-4.6); Lymphocytes % 11.5 %; Mean Corpuscular HGB Conc 32.6 g/dL (31.6-35.5); Mean Platelet Volume 8.8 fL (9.4-12.4); Monocytes # 0.7 K/mcL (0.0-1.3); Monocytes % 5.9 %; Neutrophils # 9.4 K/mcL (1.6-8.9); Platelet Count 209 K/mcL (140-400); Red Blood Count 4.71 M/mcL (3.82-4.97); Red Cell Distribution Width 13.4 % (11.5-14.5); Segmented Neutrophils % 79.5 %; White Blood Count 11.8 K/mcL (4.3-11.1)
[2019-11-09] MEDS: *HR* OxyCODONE/APAP 5/325 TABLET PO PRN (22:39)
[~2019-11-09 22:45] MED LIST changes: +*HR* FentaNYL (PF) 100 MCG/2 ML VIAL ONE; +*HR* HYDROmorphone PF 0.5 MG/0.5 ML SYRINGE IVP PRN; +*HR* Morphine Sulfate/PF 10 MG/10 ML AMPUL ONE; +*HR* OxyCODONE Immed Rel 5 MG TABLET PO PRN; +*HR* Oxytocin 10 UNIT/ML VIAL IM ONE; +*HR* Promethazine 25 MG/ML VIAL IVP PRN; +Acetaminophen IV 1,000 MG/100 ML INFUS..BTL ONE; +EPHEDrine 50 MG/ML VIAL ONE; +Famotidine 20 MG/2 ML VIAL IVP PRN; +Metoclopramide 10 MG/2 ML VIAL IVP PRN; +Naloxone 0.4 MG/ML INJ IVP PRN; +Ondansetron 4 MG/2 ML VIAL IVP ONE; +Ondansetron 4 MG/2 ML VIAL IVP PRN; +Ondansetron 4 MG/2 ML VIAL ONE; +Oxytocin 20 units/ LR 1000 mL 20 UNIT/1,000 ML BAG IVC ONE; +Oxytocin 20 units/ LR 1000 mL 20 UNIT/1,000 ML BAG IVC SCH; +Rho Immune Globulin 1,500 UNIT SYRINGE IM ONE; -Ringers Solution, Lactated 1,000 ML IVC ONE; +Ringers Solution, Lactated 1,000 ML ONE; -Ringers Solution, Lactated 2,000 ML ONE; +Sennosides 8.6 MG TABLET PO PRN
[2019-11-10] MEDS: ceFAZolin 1,000 MG in Water for inj. (sterile) 10 ML IVP SCH ×2 (00:07→16:49)
[2019-11-10] MEDS: *HR* OxyCODONE/APAP 5/325 TABLET PO PRN ×3 (03:47→22:36)
[2019-11-10 05:23] LABS: Basophils % 0.2 %; Hematocrit 21.5 % (35.3-44.9); Immature Granulocytes % 1.6 % (0-4); Lymphocytes # 1.6 K/mcL (0.6-4.6); Lymphocytes % 7.5 %; Mean Corpuscular HGB Conc 32.6 g/dL (31.6-35.5); Mean Corpuscular Hemoglobin 28.1 pg (28.0-33.3); Mean Corpuscular Volume 86.3 fL (83.0-100.0); Monocytes # 1.1 K/mcL (0.0-1.3); Monocytes % 5.1 %; Neutrophils # 17.7 K/mcL (1.6-8.9); Platelet Count 181 K/mcL (140-400); Red Blood Count 2.49 M/mcL (3.82-4.97); Red Cell Distribution Width 13.5 % (11.5-14.5); Segmented Neutrophils % 85.6 %
[2019-11-10 05:29] LABS: White Blood Count 20.7 K/mcL (4.3-11.1)
[2019-11-10] MEDS ORDERED: Methylergonovine 0.2 MG/ML AMPUL IM ONE (05:44)
[2019-11-10] MEDS ORDERED: 0.9 % Sodium Chloride 500 ML ONE ×2 (07:45→11:07)
[2019-11-10] MEDS: *HR* HYDROmorphone (PF) 1 MG/ML SYRINGE IVP PRN ×3 (09:54→16:29)
[2019-11-10] MEDS: *HR* HYDROcodone/Acet 5/325 mg TABLET PO PRN ×2 (14:15→20:16)
[2019-11-10] MEDS: miSOPROStoL 100 MCG TABLET PO SCH (15:19)
[2019-11-10] MEDS: Simethicone 80 MG TAB.CHEW PO PRN (16:52)
[2019-11-10 17:54] LABS: Basophils % 0.2 %; Eosinophils % 0.3 %; Hematocrit 26.1 % (35.3-44.9); Hemoglobin 8.5 g/dL (11.5-15.4); Immature Granulocytes % 1.5 % (0-4); Lymphocytes # 1.5 K/mcL (0.6-4.6); Lymphocytes % 10.5 %; Mean Corpuscular HGB Conc 32.6 g/dL (31.6-35.5); Mean Corpuscular Hemoglobin 28.4 pg (28.0-33.3); Mean Corpuscular Volume 87.3 fL (83.0-100.0); Mean Platelet Volume 8.8 fL (9.4-12.4); Monocytes % 6.9 %; Neutrophils # 11.6 K/mcL (1.6-8.9); Platelet Count 148 K/mcL (140-400); Red Blood Count 2.99 M/mcL (3.82-4.97); Red Cell Distribution Width 14.4 % (11.5-14.5); Segmented Neutrophils % 80.6 %; White Blood Count 14.4 K/mcL (4.3-11.1)
[2019-11-10] MEDS ORDERED: 0.9 % Sodium Chloride 250 ML ONE ×2 (20:07→23:47)
[2019-11-10] MEDS: Ibuprofen 600 MG TABLET PO PRN (22:44)
[2019-11-11] MEDS: *HR* HYDROcodone/Acet 5/325 mg TABLET PO PRN ×3 (02:43→15:42)
[2019-11-11] MEDS: *HR* OxyCODONE/APAP 5/325 TABLET PO PRN ×4 (05:41→22:10)
[2019-11-11] MEDS: Ibuprofen 600 MG TABLET PO PRN ×3 (05:41→20:00)
[2019-11-11 07:00] LABS: Basophils % 0.3 %; Eosinophils # 0.1 K/mcL (0.0-0.6); Eosinophils % 1.1 %; Hematocrit 31.9 % (35.3-44.9); Immature Granulocytes % 1.5 % (0-4); Lymphocytes # 1.3 K/mcL (0.6-4.6); Lymphocytes % 10.2 %; Mean Corpuscular HGB Conc 32.6 g/dL (31.6-35.5); Mean Corpuscular Hemoglobin 28.7 pg (28.0-33.3); Mean Corpuscular Volume 87.9 fL (83.0-100.0); Mean Platelet Volume 8.7 fL (9.4-12.4); Monocytes % 7.8 %; Platelet Count 141 K/mcL (140-400); Red Blood Count 3.63 M/mcL (3.82-4.97); Red Cell Distribution Width 14.8 % (11.5-14.5); Segmented Neutrophils % 79.1 %; White Blood Count 12.6 K/mcL (4.3-11.1)
[2019-11-11 07:03] LABS: Hemoglobin 10.4 g/dL (11.5-15.4)
[2019-11-11] MEDS: Prenatal Vit/FA 1 EACH TABLET PO SCH (10:05)
[2019-11-11] MEDS: miSOPROStoL 100 MCG TABLET PO SCH (10:06)
[2019-11-11] MEDS ORDERED: *HR* HYDROmorphone (PF) 1 MG/ML SYRINGE IVP PRN (17:37)
[2019-11-11] MEDS: Simethicone 80 MG TAB.CHEW PO PRN (17:53)
[2019-11-12] MEDS: Ibuprofen 600 MG TABLET PO PRN (01:50)
[2019-11-12] MEDS: Simethicone 80 MG TAB.CHEW PO PRN (01:51)
[2019-11-12] MEDS: *HR* OxyCODONE/APAP 5/325 TABLET PO PRN (05:43)
[2019-11-12] MEDS: Prenatal Vit/FA 1 EACH TABLET PO SCH (08:31)
[2019-11-12 08:56] LABS: Basophils # 0.1 K/mcL (0.0-0.2); Basophils % 0.3 %; Eosinophils # 0.2 K/mcL (0.0-0.6); Eosinophils % 1.5 %; Hematocrit 34.8 % (35.3-44.9); Immature Granulocytes % 1.8 % (0-4); Lymphocytes # 1.5 K/mcL (0.6-4.6); Lymphocytes % 10.3 %; Mean Corpuscular HGB Conc 33.6 g/dL (31.6-35.5); Mean Corpuscular Hemoglobin 29.6 pg (28.0-33.3); Mean Corpuscular Volume 88.1 fL (83.0-100.0); Mean Platelet Volume 8.4 fL (9.4-12.4); Monocytes # 0.8 K/mcL (0.0-1.3); Monocytes % 5.5 %; Neutrophils # 11.5 K/mcL (1.6-8.9); Platelet Count 189 K/mcL (140-400); Red Blood Count 3.95 M/mcL (3.82-4.97); Red Cell Distribution Width 14.9 % (11.5-14.5); Segmented Neutrophils % 80.6 %; White Blood Count 14.3 K/mcL (4.3-11.1)
[2019-11-12 08:58] LABS: Hemoglobin 11.7 g/dL (11.5-15.4)
[2019-11-12] MEDS ORDERED: FLUoxetine 20 MG CAPSULE PO SCH (09:00)
[2019-11-12 12:22] VITALS: BP 116/74
== END 2019-11-12 13:19 | disposition home or self-care (01) | DRG 539 ==
LOC: 1NENULAB → 1NENUOBS 22:45
PROVIDERS: ADMIT Obstetrics & Gynecology; ATTEND Obstetrics & Gynecology